=== PATIENT | female | born 1955 | race Caucasian/White ===

== ENCOUNTER → 2017-01-16 | Outpatient (CLI) | payer OTHER ==
[~2017-01-16] MED LIST: ASPI1TAB30 PO; ESOM40CA PO; FAMC500T PO; FLUO20CA8 PO; HYDR-2762 PO; IRON1TAB2 PO; LOSA100T6 PO; META-21 PO; METO100T11 PO; MULT-650 PO; TRAZ50TA15 PO; TRIA1TAB5 PO
[2017-01-16 11:52] LABS: BASO # 0.1 x10^3/uL (0.0-0.2); BASO % 1 % (0-3); EOS % 3 % (0-3); HEMATOCRIT 39.3 % (36.0-47.0); HEMOGLOBIN 13.1 g/dL (12.0-15.5); LYMPH # 1.4 x10^3/uL (1.0-4.8); LYMPH % 20 % (24-48); MEAN CORPUSCULAR HEMOGLOBIN 32 pg (25-35); MEAN CORPUSCULAR HGB CONC 33 g/dL (31-37); MEAN CORPUSCULAR VOLUME 98 fL (79-100); MONO % 6 % (0-9); NEUT % 70 % (31-73); PLATELET COUNT 205 x10^3/uL (140-400); RED BLOOD COUNT 4.03 x10^6/uL (3.50-5.40); RED CELL DISTRIBUTION WIDTH 13.2 % (11.5-14.5); WHITE BLOOD COUNT 7.1 x10^3/uL (4.0-11.0)
--- NOTE | 2017-01-16 11:56 | EKG ---
[facility] [address] [place] [address] Test Date: 2017-01-16 Test Time: 11:59:21 Pat Name: ISIDRO LUNA Department: Room: Gender: F Local Announcer: TV : 1955 Requested By: TOMMIE LINDSEY Order Number: [id number] Reading MD: Mike Marshall Measurements Intervals [place] Rate: 61 P: 48 MN: 170 QRS: 23 QRSD: 88 T: 42 QT: 416 QTc: 424 Interpretive Statements SINUS RHYTHM NORMAL ECG RI6.01 No previous ECG available for comparison Electronically Signed On 01-16-2017 17:44:01 CDT by Mike Marshall
[2017-01-16 12:02] LABS: ALBUMIN 3.6 g/dL (3.4-5.0); CALCIUM 8.5 mg/dL (8.5-10.1); CREATININE 0.8 mg/dL (0.6-1.0); GFR 72.7; POTASSIUM 3.9 mmol/L (3.5-5.1)
[2017-01-16 12:04] LABS: INR 0.9 (0.8-1.1); PROTHROMBIN TIME PATIENT 11.8 SEC (11.7-14.0)
--- NOTE | 2017-01-16 12:18 | RAD ---
Chest radiograph 2 view 01/16/2017 Clinical indication: Preoperative evaluation. Comparison: 05/30/2011 chest radiograph Findings: Cardiac and mediastinal silhouettes are within normal limits. No pleural effusion, pneumothorax or focal consolidation. Impression: No acute cardiopulmonary abnormality.
[2017-01-16 12:54] LABS: BILIRUBIN,URINE NEGATIVE (NEG); GLUCOSE,URINE NEGATIVE (NEG); NITRITE,URINE NEGATIVE (NEG); PH,URINE 5.5; PROTEIN,URINE NEGATIVE (NEG-TRACE); UROBILINOGEN,URINE 0.2 mg/dL (0.2 mg/dL)
[2017-01-16 13:24] LABS: BACTERIA,URINE 0 /HPF (0-FEW); RBC,URINE 0 /HPF (0-2); SQUAMOUS EPITHELIAL CELL,UR MOD /LPF
== END | disposition home or self-care (01) ==
LOC: SURGPAT 10:57
PROVIDERS: ATTEND Orthopaedic Surgery
DX: Z01.818 Encounter for other preprocedural examination (principal)
CPT/HCPCS: 36415; 71020; 80048; 81001; 82040; 85027; 85610; 85651; 85730; 87641; 93005